=== PATIENT | male | born 1980 | race Caucasian/White ===

== ENCOUNTER 2022-09-29 18:00 | Emergency (ER) | payer SELFPAY ==
[2022-09-29] MEDS ORDERED: predniSONE 10 MG Tab PO ONE (18:33)
[2022-09-29] MEDS ORDERED: Acyclovir 200 MG Cap PO ONE (18:34)
[2022-09-29] MEDS ORDERED: Doxycycline 100 MG Cap PO ONE (18:34)
== END 2022-09-29 19:25 | disposition home or self-care (01) ==
LOC: MW.ED 18:00
DX: G51.0 Bell's palsy (principal); I10 Essential (primary) hypertension; K21.9 Gastro-esophageal reflux disease without esophagitis; E11.9 Type 2 diabetes mellitus without complications; F17.210 Nicotine dependence, cigarettes, uncomplicated; Z79.899 Other long term (current) drug therapy
CPT/HCPCS: 99283; A9270; 99284